=== PATIENT | male | born 1960 | race Caucasian/White ===

== ENCOUNTER 2023-05-17 05:40 | Inpatient (IN) | payer OTHER, SELFPAY ==
[2023-05-13 09:42] VITALS: BMI 28.2
[2023-05-17] MEDS ORDERED: PROPOFOL 20 ML ONE (06:30)
[2023-05-17] MEDS ORDERED: Midazolam HCl 2 mg/2 ml Vial ONE (06:31)
[2023-05-17] MEDS ORDERED: Rocuronium Bromide 10 MG/ML (10ML VIAL) ONE (06:31)
[2023-05-17] MEDS ORDERED: Fentanyl 250 MCG/5 ML VIAL ONE (06:31)
[2023-05-17] MEDS ORDERED: Dexamethasone 4 mg/ml Vial ONE (06:31)
[2023-05-17] MEDS ORDERED: Ondansetron PF 4 MG/2 ML Vial ONE (06:31)
[2023-05-17] MEDS ORDERED: Lidocaine 1% w/Epinephrine 1:100K 30 ML VIAL ONE (06:31)
[2023-05-17] MEDS ORDERED: Lidocaine 1% PF 5 ML VIAL ONE (06:31)
[2023-05-17] MEDS ORDERED: CEFAZOLIN 2 GM VIAL ONE (07:08)
[2023-05-17 07:17] LABS: Hematocrit 40.8 % (38.8-50.0); Hemoglobin 13.5 g/dL (13.5-17.5); Mean Corpuscular HGB CONC 33.1 g/dL (32.0-36.0); Mean Corpuscular Volume 93.6 fl (81.2-95.1); Mean Platelet Volume 9.5 fl (7.4-10.4); Platelet Count 249 10x3/uL (150-450); RBC Distribution Width 13.6 % (11.5-14.5); Red Blood Cell (RBC) Count 4.36 10x6/uL (4.32-5.72); White Blood Cell (WBC) Count 7.2 10x3/uL (3.5-10.5)
[2023-05-17 07:23] LABS: Anion Gap 15 mmol/L (10-20); BUN (Urea Nitrogen) 23 mg/dL (8.4-25.7); Calc. Creatinine Clearance 101 mL/min (70-130); Calcium 9.4 mg/dL (7.8-10.44); Carbon Dioxide 23 mmol/L (23-31); Chloride 107 mmol/L (98-107); Estimated GFR 79; Glucose 104 mg/dL (80-115); Potassium 3.9 mmol/L (3.5-5.1); Sodium 141 mmol/L (136-145)
[2023-05-17] MEDS ORDERED: ePHEDrine Sulfate 50 MG/10 ML VIAL ONE (07:27)
[2023-05-17] MEDS ORDERED: PHENYLEPHRINE-NS 100 MCG/ML 10 ML SYRINGE ONE (07:28)
[2023-05-17] MEDS ORDERED: Glycopyrrolate 0.2 MG/ML 5 ML SYRINGE ONE (08:54)
[2023-05-17] MEDS: Acetaminophen/Codeine 30-300mg Tablet PO PRN ×3 (09:43→23:45)
[2023-05-17] MEDS: Morphine 4 MG/ML VIAL SLOW IVP PRN ×2 (11:15→16:17)
[2023-05-18] MEDS: Morphine 4 MG/ML VIAL SLOW IVP PRN ×2 (00:48→07:59)
[2023-05-18] MEDS: Acetaminophen/Codeine 30-300mg Tablet PO PRN (06:14)
[2023-05-18] MEDS ORDERED: Lisinopril 20 MG TAB PO SCH (09:00)
[2023-05-18] MEDS ORDERED: Amlodipine 5 MG TAB PO SCH (09:00)
== END 2023-05-18 09:00 | disposition home or self-care (01) | DRG 626 ==
LOC: CSHSDC 05:40 → CSHICU 09:58
PROVIDERS: ADMIT Otolaryngology Plastic Surgery within the Head & Neck; ATTEND Otolaryngology Plastic Surgery within the Head & Neck
PROC: 0GBG0ZZ Excision of Left Thyroid Gland Lobe, Open Approach (ICD-10-PCS; principal; 2023-05-17)
PROC: 4A11X4G Monitoring of Peripheral Nervous Electrical Activity, Intraoperative, External Approach (ICD-10-PCS; 2023-05-17)
DX: E07.89 Other specified disorders of thyroid (principal); I48.19 Other persistent atrial fibrillation; J38.01 Paralysis of vocal cords and larynx, unilateral; R42 Dizziness and giddiness; G43.909 Migraine, unspecified, not intractable, without status migrainosus; J30.9 Allergic rhinitis, unspecified; Z98.890 Other specified postprocedural states; Z88.8 Allergy status to other drugs, medicaments and biological substances; Z82.49 Family history of ischemic heart disease and other diseases of the circulatory system
CPT/HCPCS: 80048; 85027; 88307; 88331; 88332; 93005; 93010; J1100; J2250; J2270; J2405; J2704; J3010